=== PATIENT | male | born 1980 | race Two or more races ===

== ENCOUNTER 2018-12-05 12:58 | Emergency (ER) | payer OTHER ==
[~2018-12-05] VITALS: Ht 188 cm; Wt 138.3 kg
[~2018-12-05 12:58] MED LIST: ZITHROMAX200 MG PO
== END 2018-12-05 18:52 | disposition home or self-care (01) ==
LOC: ER 12:58
DX: R07.89 Other chest pain (principal); M94.0 Chondrocostal junction syndrome [Tietze]